=== PATIENT | female | born 1965 | race Caucasian/White ===

== ENCOUNTER 2016-08-01 14:42 | Emergency (ER) | payer OTHER ==
[~2016-08-01] VITALS: Ht 162.6 cm; Wt 75.2 kg
[~2016-08-01 14:42] MED LIST: ALPRAZOLAM0.5 MG PO; ANAPROX DS550 M1 PO; ASPIR 8181 M1 PO; ATARAX,VISTARIL25 MG PO; BABY ASPIRIN81 MG PO; BUPROPION HCL100 MG PO; CALCIUM 500 MG1 EACH PO; CYCLOBENZAPRINE5 MG PO; DAILY VALUE1 EACH PO; FENOFIBRATE160 M1 PO; FISH OIL CONC1 EACH PO; FLEXERIL10 MG PO; KEFLEX500 MG PO; LYRICA75 MG PO; MORPHINE SULFAT15 M1 PO; NEURONTIN300 MG PO; NOHOMEMEDS; OMEGA 3-6-91200 MG PO; PEN-VEE K,VEET500 MG PO; PERCOCET 10/1 TABLET PO; PRAVASTATIN SOD80 MG PO; PREDNISONE10 M1 PO; PROAIR HFA8.5 GM IH; ROBITUSSIN AC,T10 ML PO; ROXICET 5-3251 EACH PO; ROXICODONE15 MG PO; ULTRAM50 MG PO; VALIUM5 MG PO; VICODIN,LORT1 TABLET PO; VITAMIN B-6100 MG PO; VITAMIN B6100 MG PO; VITAMIN D3400 UNI1 PO; WELLBUTRIN100 MG PO; XANAX0.5 MG PO
[2016-08-01] MEDS ORDERED: KRILL OIL500 MG PO (15:50)
[2016-08-01 16:38] LABS: EOSINOPHIL (%) 0 % (0-5); HEMATOCRIT 41.3 % (36.0-46.0); IMMATURE GRANULOCYTE (%) 0.2 % (0.0-0.7); IMMATURE GRANULOCYTE COUNT 0.3 K/uL; LYMPHOCYTE COUNT 1.3 K/uL (1.0-2.8); MCH 30.8 PG (29.0-34.0); MCHC 33.4 G/DL (30.0-36.0); MCV 92.2 FL (83-99); MEAN PLAT.VOLUME 11.7 uM^3 (9.5-12.4); MONOCYTE (%) 3.9 % (3-12); MONOCYTE COUNT 0.6 K/uL (0-0.8); NEUTROPHIL (%) 87.3 % (45-76); NEUTROPHIL COUNT 13.3 K/uL (1.8-6.4); PLATELET COUNT 159 K/uL (156-360); RBC DIS.WIDTH-CV 12.8 % (11.8-14.6); RBC DIS.WIDTH-SD 42.2 % (39-53); RED BLOOD COUNT 4.48 M/uL (3.80-5.20); WHITE BLOOD COUNT 15.2 K/uL (4.1-10.2)
[2016-08-01 16:51] LABS: CHLORIDE 111 mEq/L (99-109); POTASSIUM 4.1 mEq/L (3.7-5.4); SODIUM 142 mEq/L (136-147)
[2016-08-01 16:52] LABS: ADD MIUA? NO; BILIRUBIN NEGATIVE; BLOOD NEGATIVE; COLOR YELLOW ((YELLOW)); GLUCOSE (STRIP) NEGATIVE; KETONES NEGATIVE; LEUKOCYTES NEGATIVE; NITRITE NEGATIVE; PH, URINE 6.5 (5-8); PROTEIN (STRIP) NEGATIVE; SPECIFIC GRAVITY 1.024 (1.000-1.030); UCUL ADDED? NO; UROBILINOGEN 0.2 MG/DL (0.2-1.0)
[2016-08-01 16:53] LABS: GLUCOSE 141 mg/dL (70-99)
[2016-08-01 16:55] LABS: ANION GAP 10 MEQ/L (2-14); TOTAL BILIRUBIN 0.4 mg/dL (0.0-1.0)
[2016-08-01 16:57] LABS: ALKALINE PHOSPHATASE 62 IU/L (3-129); GFR ESTIMATE (CALCULATED) > 59 mL/min/
[2016-08-01 16:58] LABS: UREA NITROGEN (BUN) 24 mg/dL (9-23)
[2016-08-01 18:05] VITALS: BP 126/85
== END 2016-08-01 18:22 | disposition home or self-care (01) ==
LOC: EME 14:42
PROVIDERS: Emergency Medicine
DX: R51 Headache (principal); R03.0 Elevated blood-pressure reading, without diagnosis of hypertension; E78.5 Hyperlipidemia, unspecified; F17.200 Nicotine dependence, unspecified, uncomplicated
CPT/HCPCS: 70450; 80053; 81003; 85025; 93005; 99281; 99285; J0780; J1200; J1885; J7030

== ENCOUNTER 2016-09-02 17:13 | Emergency (ER) | payer OTHER ==
[~2016-09-02] VITALS: Ht 162.6 cm; Wt 75.8 kg
[~2016-09-02 17:13] MED LIST changes: +KRILL OIL500 MG PO
[2016-09-02 18:04] LABS: HEMATOCRIT 40.9 % (36.0-46.0); MCH 30.7 PG (29.0-34.0); MEAN PLAT.VOLUME 11.2 uM^3 (9.5-12.4); PLATELET COUNT 170 K/uL (156-360); RBC DIS.WIDTH-CV 12.8 % (11.8-14.6); RBC DIS.WIDTH-SD 42.2 % (39-53); WHITE BLOOD COUNT 7.5 K/uL (4.1-10.2)
[2016-09-02 18:13] LABS: CHLORIDE 108 mEq/L (99-109); POTASSIUM 4.2 mEq/L (3.7-5.4); SODIUM 141 mEq/L (136-147)
[2016-09-02 18:15] LABS: GLUCOSE 104 mg/dL (70-99)
[2016-09-02 18:16] LABS: ANION GAP 9 MEQ/L (2-14)
[2016-09-02 18:19] LABS: GFR ESTIMATE (CALCULATED) > 59 mL/min/; UREA NITROGEN (BUN) 18 mg/dL (9-23)
[2016-09-02 20:27] LABS: TOTAL BILIRUBIN 0.1 mg/dL (0.0-1.0)
[2016-09-02 20:28] LABS: ALKALINE PHOSPHATASE 71 IU/L (3-129)
[2016-09-02 20:31] LABS: DIRECT BILIRUBIN 0.1 mg/dL (0.0-0.3)
[2016-09-02 20:32] LABS: LIPASE 33 U/L (1.0-51.0)
[2016-09-02 20:35] LABS: TROP-I INTERPRETATION NEGATIVE; TROPONIN-I 0.01 ng/mL (0.0-0.30)
[2016-09-02] MEDS ORDERED: AMOXICILLIN500 MG PO (22:04)
[2016-09-02] MEDS ORDERED: MIRALAX255 GM PO (22:05)
[2016-09-02 22:48] VITALS: BP 124/78
== END 2016-09-02 22:51 | disposition home or self-care (01) ==
LOC: EME 17:13
DX: R10.9 Unspecified abdominal pain (principal); K59.00 Constipation, unspecified; J02.9 Acute pharyngitis, unspecified; R51 Headache; E78.5 Hyperlipidemia, unspecified; G89.29 Other chronic pain; Z79.891 Long term (current) use of opiate analgesic; Z79.82 Long term (current) use of aspirin; F17.200 Nicotine dependence, unspecified, uncomplicated
CPT/HCPCS: 71020; 74176; 80048; 80076; 83690; 84484; 85027; 93005; 99281; 99284

== ENCOUNTER 2016-12-23 13:07 | Emergency (ER) | payer OTHER ==
[~2016-12-23] VITALS: Ht 162.6 cm; Wt 75.5 kg
[~2016-12-23 13:07] MED LIST changes: +AMOXICILLIN500 MG PO; +MIRALAX255 GM PO
[2016-12-23 13:39] VITALS: BP 140/88
[2016-12-23 15:11] LABS: HEMATOCRIT 44.4 % (36.0-46.0); MCH 30.5 PG (29.0-34.0); MCHC 32.9 G/DL (30.0-36.0); MCV 92.7 FL (83-99); MEAN PLAT.VOLUME 11.6 uM^3 (9.5-12.4); PLATELET COUNT 154 K/uL (156-360); RBC DIS.WIDTH-CV 12.6 % (11.8-14.6); RBC DIS.WIDTH-SD 43.6 % (39-53); RED BLOOD COUNT 4.79 M/uL (3.80-5.20); WHITE BLOOD COUNT 8.5 K/uL (4.1-10.2)
[2016-12-23 15:24] LABS: CHLORIDE 110 mEq/L (99-109); POTASSIUM 4.1 mEq/L (3.7-5.4); SODIUM 141 mEq/L (136-147)
[2016-12-23 15:25] LABS: GLUCOSE 92 mg/dL (70-99)
[2016-12-23 15:27] LABS: ANION GAP 10 MEQ/L (2-14)
[2016-12-23 15:29] LABS: GFR ESTIMATE (CALCULATED) > 59 mL/min/
[2016-12-23 15:30] LABS: UREA NITROGEN (BUN) 19 mg/dL (9-23)
[2016-12-23 15:34] LABS: TROP-I INTERPRETATION NEGATIVE; TROPONIN-I < 0.01 ng/mL (0.0-0.30)
== END 2016-12-23 16:12 | disposition left against medical advice (07) ==
LOC: EME 13:07
PROVIDERS: Physician Assistant Medical
DX: R10.13 Epigastric pain (principal); M79.671 Pain in right foot; M79.672 Pain in left foot; K30 Functional dyspepsia; R60.0 Localized edema; E78.5 Hyperlipidemia, unspecified; G89.29 Other chronic pain; F17.200 Nicotine dependence, unspecified, uncomplicated; Z90.49 Acquired absence of other specified parts of digestive tract
CPT/HCPCS: 71020; 80048; 84484; 85027; 93005; 99281; 99284

== ENCOUNTER 2017-01-08 15:40 | Emergency (ER) | payer OTHER ==
[~2017-01-08] VITALS: Ht 162.6 cm; Wt 76.7 kg
[2017-01-08] MEDS ORDERED: TRAMADOL HCL50 MG PO (19:39)
[2017-01-08 19:45] VITALS: BP 128/77
== END 2017-01-08 19:46 | disposition home or self-care (01) ==
LOC: EME 15:40 → RME 17:42
DX: M79.604 Pain in right leg (principal); I83.91 Asymptomatic varicose veins of right lower extremity; E78.5 Hyperlipidemia, unspecified; F17.200 Nicotine dependence, unspecified, uncomplicated; Z90.49 Acquired absence of other specified parts of digestive tract
CPT/HCPCS: 93971; 99281; 99284

== ENCOUNTER 2017-05-15 12:34 | Emergency (ER) | payer OTHER ==
[~2017-05-15] VITALS: Ht 162.6 cm; Wt 77.7 kg
[~2017-05-15 12:34] MED LIST changes: +TRAMADOL HCL50 MG PO
[2017-05-15 13:16] LABS: HEMATOCRIT 43.7 % (36.0-46.0); MCH 30.7 PG (29.0-34.0); MCV 93.2 FL (83-99); MEAN PLAT.VOLUME 11.3 uM^3 (9.5-12.4); PLATELET COUNT 163 K/uL (156-360); RBC DIS.WIDTH-CV 12.8 % (11.8-14.6); RED BLOOD COUNT 4.69 M/uL (3.80-5.20); WHITE BLOOD COUNT 9.2 K/uL (4.1-10.2)
[2017-05-15 13:31] LABS: CHLORIDE 107 mEq/L (99-109); POTASSIUM 4.3 mEq/L (3.7-5.4); SODIUM 140 mEq/L (136-147)
[2017-05-15 13:34] LABS: GLUCOSE 87 mg/dL (70-99)
[2017-05-15 13:35] LABS: ANION GAP 8 MEQ/L (2-14); TOTAL BILIRUBIN 0.4 mg/dL (0.0-1.0)
[2017-05-15 13:37] LABS: ALKALINE PHOSPHATASE 58 IU/L (3-129); GFR ESTIMATE (CALCULATED) > 59 mL/min/
[2017-05-15 13:38] LABS: UREA NITROGEN (BUN) 17 mg/dL (9-23)
[2017-05-15 13:41] LABS: TROP-I INTERPRETATION NEGATIVE; TROPONIN-I < 0.01 ng/mL (0.0-0.30)
[2017-05-15 15:17] LABS: TROP-I INTERPRETATION NEGATIVE; TROPONIN-I < 0.01 ng/mL (0.0-0.30)
[2017-05-15 15:30] VITALS: BP 126/74
== END 2017-05-15 15:31 | disposition home or self-care (01) ==
LOC: EME 12:34
PROVIDERS: Physician Assistant
DX: R07.89 Other chest pain (principal); R06.02 Shortness of breath; E78.5 Hyperlipidemia, unspecified; Z82.49 Family history of ischemic heart disease and other diseases of the circulatory system; Z79.82 Long term (current) use of aspirin; F17.200 Nicotine dependence, unspecified, uncomplicated
CPT/HCPCS: 80053; 84484; 85027; 93005; 99281; 99284